=== PATIENT | female | born 1950 | race Caucasian/White ===

== ENCOUNTER 2021-07-11 22:44 | Inpatient (IN) | payer BC ==
[~2021-07-11] VITALS: Ht 154.9 cm; Wt 63.6 kg
[2021-07-11 23:40] LABS: COLLECTION METHOD CLEAN CATCH
[2021-07-11 23:45] LABS: BASO # 0.1 K/mm3 (0.0-0.2); BASO % 0.4 % (0.0-2.0); EOS % 0.2 % (0.0-4.0); GRAN # 14.1 K/mm3 (1.4-6.5); GRAN % 85.9 % (42.2-75.2); HEMATOCRIT 39.1 % (37.0-47.0); HEMOGLOBIN 13.3 g/dl (12.5-16.0); LYMPH % 6.3 % (20.0-51.0); MEAN CELL VOLUME 88 fl (80.0-100.0); MEAN CORPUSCULAR HEMOGLOBIN 30 pg (27-31); MEAN CORPUSCULAR HGB CONC 34 g/dl (33.0-37.0); MEAN PLATELET VOLUME 9.7 fl (7.4-10.4); MONO # 1.1 K/mm3 (0.1-0.6); MONO % 6.5 % (1.7-9.3); PLATELET COUNT 285 K/mm3 (130-400); RED BLOOD COUNT 4.46 M/mm3 (4.10-5.30); REDCELL DISTRIBUTION WIDTH-CV 12.9 % (11.5-14.5)
[2021-07-11 23:50] LABS: MUCOUS Present (NOT PRESENT); PH 5 (5-8); URINE APPEARANCE Cloudy (CLEAR/HAZY); URINE BACTERIA Rare /hpf (NONE SEEN); URINE BILIRUBIN Negative (NEGATIVE); URINE BLOOD 2+ (NEGATIVE); URINE COLOR Yellow (YELLOW); URINE GLUCOSE Negative (NEGATIVE); URINE KETONE Negative (NEGATIVE); URINE LEUKOCYTE ESTERASE 3+ (NEGATIVE); URINE NITRATE Positive (NEGATIVE); URINE PROTEIN(semi-quant) 1+ (NEGATIVE); URINE UROBILINOGEN Negative (NEGATIVE)
[2021-07-12 00:08] LABS: ALBUMIN 3.9 gm/dL (3.4-4.8); BILIRUBIN,TOTAL 0.8 mg/dL (0.2-1.2); C-REACTIVE PROTEIN 5.36 mg/dL (0.00-0.50); CALCIUM 9.6 mg/dL (8.4-10.2); CREATININE, serum 2.04 mg/dL (0.57-1.11); POTASSIUM 3.3 mmol/L (3.5-4.5); TOTAL PROTEIN 8.2 gm/dL (6.2-8.1)
[2021-07-12] MEDS ORDERED: BONIVA150 MG PO (01:36)
[2021-07-12] MEDS ORDERED: HYZAAR 12.5 MG-1 TAB PO (01:37)
[2021-07-12] MEDS ORDERED: ASPIRIN 81M81 MG/TA2 PO (01:37)
[2021-07-12] MEDS ORDERED: NORVASC 5MG5 MG/TAB PO (01:37)
[2021-07-12] MEDS ORDERED: CALCIUM 600MG+D1 TAB PO (01:38)
[2021-07-12 04:16] LABS: BASO # 0.1 K/mm3 (0.0-0.2); BASO % 0.4 % (0.0-2.0); EOS % 0.1 % (0.0-4.0); GRAN # 11.2 K/mm3 (1.4-6.5); HEMOGLOBIN 11.6 g/dl (12.5-16.0); LYMPH # 0.9 K/mm3 (1.2-3.4); LYMPH % 7.6 % (20.0-51.0); MEAN CELL VOLUME 88 fl (80.0-100.0); MEAN CORPUSCULAR HEMOGLOBIN 30 pg (27-31); MEAN CORPUSCULAR HGB CONC 34 g/dl (33.0-37.0); MEAN PLATELET VOLUME 9.7 fl (7.4-10.4); MONO # 0.2 K/mm3 (0.1-0.6); MONO % 1.5 % (1.7-9.3); PLATELET COUNT 233 K/mm3 (130-400); RED BLOOD COUNT 3.89 M/mm3 (4.10-5.30); REDCELL DISTRIBUTION WIDTH-CV 12.7 % (11.5-14.5)
[2021-07-12 04:18] LABS: HEMATOCRIT 34.3 % (37.0-47.0)
[2021-07-12 12:14] VITALS: BP 119/64; PULSE 68; TEMP 97.9
[2021-07-12 15:03] LABS: CALCIUM 8.8 mg/dL (8.4-10.2); CREATININE, serum 1.34 mg/dL (0.57-1.11); POTASSIUM 3.5 mmol/L (3.5-4.5)
--- NOTE | 2021-07-12 15:37 | NUR ---
BLOOD CULTURE POSTIVE FOR TRAVON VALE CALL AND NOTIFTY NO NEW ORDERS RECIEVED
[2021-07-12 16:00] VITALS: BP 126/52; PULSE 69; TEMP 98.2
[2021-07-12 20:00] VITALS: BP 139/57; PULSE 80; TEMP 98.8
[2021-07-13] VITALS (7 sets, daily range): BP systolic 122–144; BP diastolic 50–61; PULSE 70–83; TEMP 97.6–99.4
--- NOTE | 2021-07-13 04:50 | NUR ---
PT RESTING QUIETLY IN BED, STATES THAT SHE HAS SLEPT SOME DURING NIGHT. PT HAS PRODUCTIVE COUGH WITH THIN CLEAR SPUTUM EXPECTORATED. IVF INFUSING INTO PERIPHERAL IV IN RIGHT FOREARM. PT HAS AMBULATED TO BR NUMEROUS TIMES WITH SBA TO VOID. DROPLET/CONTACT PRECAUTIONS IN PLACE. PT IS EDUCATED ON FALL PRECAUTIONS, VERBALIZES UNDERSTANDING. PT REPORTS NO BM WHEN ASKED. FRESH ICE WATER IS GIVEN. RESPIRATIONS ARE UNLABORED. CALL LIGHT WITHIN REACH.
[2021-07-13 07:19] LABS: BASO # 0.1 K/mm3 (0.0-0.2); BASO % 0.5 % (0.0-2.0); EOS # 0.1 K/mm3 (0.0-0.7); EOS % 0.8 % (0.0-4.0); GRAN # 7.7 K/mm3 (1.4-6.5); GRAN % 71.4 % (42.2-75.2); HEMOGLOBIN 11.8 g/dl (12.5-16.0); LYMPH # 1.8 K/mm3 (1.2-3.4); LYMPH % 17.1 % (20.0-51.0); MEAN CELL VOLUME 89 fl (80.0-100.0); MEAN CORPUSCULAR HEMOGLOBIN 30 pg (27-31); MEAN CORPUSCULAR HGB CONC 33 g/dl (33.0-37.0); MEAN PLATELET VOLUME 10.5 fl (7.4-10.4); MONO % 9.6 % (1.7-9.3); PLATELET COUNT 247 K/mm3 (130-400); RED BLOOD COUNT 3.98 M/mm3 (4.10-5.30); REDCELL DISTRIBUTION WIDTH-CV 13.1 % (11.5-14.5)
[2021-07-13 07:24] LABS: HEMATOCRIT 35.4 % (37.0-47.0)
[2021-07-13 07:36] LABS: CALCIUM 8.5 mg/dL (8.4-10.2); CREATININE, serum 1.11 mg/dL (0.57-1.11); POTASSIUM 3.4 mmol/L (3.5-4.5)
--- NOTE | 2021-07-13 09:13 | NUR ---
PT RESTING IN BED, DR SALINAS ROUNDED AND GAVE VERBAL TO AGGRESSIVELY DO NOTHING AT THIS TIME. CONTINUE TO MONITOR. PT UP TO BR WITH SBA, VOIDED AND RETURNED TO BED. NO SURGICAL INTERVENTIONS PLANNED AT THIS TIME.
--- NOTE | 2021-07-13 22:00 | NUR ---
Pt. laying in bed resting. Pt. is A&OX3, assessment complete. INT to rt. hand patent. Pt. denies pain or other needs, call light within reach.
[2021-07-14 03:55] VITALS: BP 145/49; PULSE 76; TEMP 98
[2021-07-14 07:37] VITALS: BP 126/56; PULSE 60; TEMP 97.9
--- NOTE | 2021-07-14 08:36 | NUR ---
PT SITTING ON SIDE OF BED EATING BREAKFAST. CONGESTION IMPROVING PER PT REPORT AND AUSCULTATION. INDEPENDENT IN ROOM. DENIES PAIN OR NEEDS AT THIS TIME. AM MEDS GIVEN ORDERED. PT TO DISCHARGE HOME EARLY IN THE WEEK.
[2021-07-14 10:12] LABS: BASO % 0.4 % (0.0-2.0); EOS # 0.1 K/mm3 (0.0-0.7); EOS % 1.1 % (0.0-4.0); GRAN # 6.6 K/mm3 (1.4-6.5); GRAN % 68.9 % (42.2-75.2); HEMOGLOBIN 11.9 g/dl (12.5-16.0); LYMPH # 1.9 K/mm3 (1.2-3.4); LYMPH % 20.3 % (20.0-51.0); MEAN CELL VOLUME 89 fl (80.0-100.0); MEAN CORPUSCULAR HEMOGLOBIN 30 pg (27-31); MEAN CORPUSCULAR HGB CONC 34 g/dl (33.0-37.0); MEAN PLATELET VOLUME 9.7 fl (7.4-10.4); MONO # 0.9 K/mm3 (0.1-0.6); MONO % 8.9 % (1.7-9.3); PLATELET COUNT 247 K/mm3 (130-400); RED BLOOD COUNT 3.98 M/mm3 (4.10-5.30)
[2021-07-14 10:14] LABS: HEMATOCRIT 35.3 % (37.0-47.0)
[2021-07-14 10:25] LABS: BILIRUBIN,TOTAL 0.2 mg/dL (0.2-1.2); CALCIUM 9.1 mg/dL (8.4-10.2); CREATININE, serum 1.14 mg/dL (0.57-1.11); POTASSIUM 3.9 mmol/L (3.5-4.5); TOTAL PROTEIN 6.8 gm/dL (6.2-8.1)
[2021-07-14 12:31] VITALS: BP 131/60; PULSE 70; TEMP 97.9
[2021-07-14 16:00] VITALS: BP 132/54; PULSE 96; TEMP 98.3
[2021-07-14 19:09] VITALS: BP 145/59; PULSE 65; TEMP 97.9
--- NOTE | 2021-07-14 20:23 | NUR ---
Pt. sitting up in bed. Pt. is A&OX3, assessment complete. INT to rt. forearm patent. Pt. denies pain or other neeeds, call light within reach.
[2021-07-15 03:05] VITALS: BP 140/59; PULSE 79; TEMP 97.9
[2021-07-15 07:03] LABS: BASO # 0.1 K/mm3 (0.0-0.2); BASO % 0.6 % (0.0-2.0); EOS # 0.3 K/mm3 (0.0-0.7); EOS % 2.9 % (0.0-4.0); GRAN # 4.6 K/mm3 (1.4-6.5); GRAN % 52.8 % (42.2-75.2); HEMOGLOBIN 11.5 g/dl (12.5-16.0); LYMPH % 34.6 % (20.0-51.0); MEAN CELL VOLUME 89 fl (80.0-100.0); MEAN CORPUSCULAR HEMOGLOBIN 30 pg (27-31); MEAN CORPUSCULAR HGB CONC 33 g/dl (33.0-37.0); MEAN PLATELET VOLUME 10.3 fl (7.4-10.4); MONO # 0.8 K/mm3 (0.1-0.6); MONO % 8.9 % (1.7-9.3); PLATELET COUNT 279 K/mm3 (130-400); REDCELL DISTRIBUTION WIDTH-CV 13.1 % (11.5-14.5)
[2021-07-15 07:24] LABS: HEMATOCRIT 34.5 % (37.0-47.0)
[2021-07-15 07:31] LABS: CALCIUM 8.9 mg/dL (8.4-10.2); CREATININE, serum 1.13 mg/dL (0.57-1.11); POTASSIUM 3.7 mmol/L (3.5-4.5)
[2021-07-15 07:44] VITALS: BP 141/51; PULSE 59; TEMP 97.9
--- NOTE | 2021-07-15 10:15 | NUR ---
PT UP INDEPENDENTLY IN ROOM. EATING AND DRINKING NO C/O NAUSEA /VOMITING. PT TO SHOWER THIS AM. PT PROGRESSING TO GOING HOME.
[2021-07-15 12:00] VITALS: BP 154/62; PULSE 62; TEMP 98.2
[2021-07-15 15:23] VITALS: BP 147/57; PULSE 67; TEMP 97.2
--- NOTE | 2021-07-15 16:12 | NUR ---
Tana met with the pt who stated her preference to return home once medically stable. The pt lives at home, alone and has 4 children. daughter, enzo [phone]/ The pt is independent on all ADLS and still drives and does not use a DME. The pt PCP Nelson Dooley and gets medications from [facility]. The pt reports no DPOA-Hc and is not interested at this time. D/c: Home
[2021-07-15 19:33] VITALS: BP 143/56; PULSE 68; TEMP 98.3
--- NOTE | 2021-07-15 21:45 | NUR ---
Pt. sitting up in bed. Pt. is A&OX3, assessment complete. INT to rt. forearm. Pt. denies pain or other needs, call light within reach.
[2021-07-15 23:56] VITALS: BP 144/62; PULSE 72; TEMP 98
[2021-07-16 03:47] VITALS: BP 160/60; PULSE 73; TEMP 98.2
[2021-07-16 06:35] LABS: BASO # 0.1 K/mm3 (0.0-0.2); BASO % 0.6 % (0.0-2.0); EOS # 0.2 K/mm3 (0.0-0.7); EOS % 1.9 % (0.0-4.0); GRAN # 6.2 K/mm3 (1.4-6.5); GRAN % 68.4 % (42.2-75.2); HEMOGLOBIN 12.2 g/dl (12.5-16.0); LYMPH # 2.1 K/mm3 (1.2-3.4); LYMPH % 23.3 % (20.0-51.0); MEAN CELL VOLUME 88 fl (80.0-100.0); MEAN CORPUSCULAR HEMOGLOBIN 29 pg (27-31); MEAN CORPUSCULAR HGB CONC 34 g/dl (33.0-37.0); MEAN PLATELET VOLUME 10.2 fl (7.4-10.4); MONO # 0.5 K/mm3 (0.1-0.6); MONO % 5.2 % (1.7-9.3); PLATELET COUNT 307 K/mm3 (130-400); RED BLOOD COUNT 4.15 M/mm3 (4.10-5.30); REDCELL DISTRIBUTION WIDTH-CV 12.9 % (11.5-14.5)
[2021-07-16 06:52] LABS: CALCIUM 9.4 mg/dL (8.4-10.2); CREATININE, serum 1.32 mg/dL (0.57-1.11); POTASSIUM 4.3 mmol/L (3.5-4.5)
[2021-07-16 06:53] LABS: HEMATOCRIT 36.3 % (37.0-47.0)
[2021-07-16 08:00] VITALS: BP 140/68; PULSE 73; TEMP 97.9
--- NOTE | 2021-07-16 08:00 | NUR ---
PATIENT IS A&O AND SITTING AT BEDSIDE WITH BREAKFAST TRAY. PATIENT DENIES PAIN BUT STATES SHE "JUST DOESN'T FEEL WELL AND ITS WORSE THAN YESTERDAY". VSS ON TELE. PATIENT ON DROPLET CONTACT FOR RSV. NOTED RIGHT SIDE DISTAL NOSE SORE FROM BLOWING HER NOSE. PATIENT ON IV ABX FOR UTI. RIGHT FORARM IV CURRENTLY TO INT. HEAD TO TOE ASSESSMENT COMPLETE. AM MEDS GIVEN. NO OTHER NEEDS AT THIS TIME. CALL LIGHT IN REACH.
[2021-07-16] MEDS ORDERED: CIPRO 500MG TA500 MG PO ×2 (09:11)
[2021-07-16] MEDS ORDERED: COZAAR 50MG50 MG/TAB PO ×2 (09:15)
--- NOTE | 2021-07-16 12:00 | NUR ---
PATIENT DISCHARGING HOME VIA AMBULATORY TO PERSONAL VEHICLE WITH SON. GAVE DISCHARGE INSTRUCTIONS, E-SCRIPTS SENT & DISCUSSED F/U APT. ANSWERED QUESTIONS/CONCERNS. RIGHT FORARM IV DC'D AND COVERED WITH GAUZE [employer] COBAN. TELE DC'D. PATIENT DRESSED, PACKED AND DISCHARGED.
== END 2021-07-16 12:00 | disposition home or self-care (01) | DRG 872 ==
LOC: COL.ER 22:44 → SURG 07-12 00:46
PROVIDERS: Emergency Medicine; Nurse Practitioner Family; Student in an Organized Health Care Education/Training Program; ADMIT Internal Medicine
DX: A41.51 Sepsis due to Escherichia coli [E. coli] (principal); N39.0 Urinary tract infection, site not specified; N17.9 Acute kidney failure, unspecified; E87.2 Acidosis; I12.9 Hypertensive chronic kidney disease with stage 1 through stage 4 chronic kidney disease, or unspecified chronic kidney disease; N18.9 Chronic kidney disease, unspecified; E87.6 Hypokalemia; B97.4 Respiratory syncytial virus as the cause of diseases classified elsewhere; R73.9 Hyperglycemia, unspecified; J06.9 Acute upper respiratory infection, unspecified; K40.20 Bilateral inguinal hernia, without obstruction or gangrene, not specified as recurrent; Z79.82 Long term (current) use of aspirin; Z23 Encounter for immunization
CPT/HCPCS: 99223-AI; 99232-AI; 99233-AI; 99239; J0696; J1644; J7030